=== PATIENT | female | born 1945 | race Caucasian/White ===

== ENCOUNTER 2021-11-30 21:15 | Inpatient (IN) | payer MEDICARE, OTHER ==
[~2021-11-30] VITALS: Ht 165.1 cm; Wt 59.4 kg
--- NOTE | 2021-11-30 21:39 | NUR ---
BIBRA 881 FROM HOME C/O DIZZY AND WEAKNESS STARTED TODAY. PLACED ON BED, AAOX4, BREATHING EVEN AND UNLABORED SATURATING AT 98%RA
--- NOTE | 2021-11-30 21:48 | NUR ---
20G IV LINE ESTABLISHED LF. BLOOD DRAWN AND SENT TO LAB.
[2021-11-30 21:55] LABS: BASOPHILS # (AUTO) 0.1 K/uL (0.0-0.2); BASOPHILS % (AUTO) 0.8 % (0.0-2.0); HEMATOCRIT 38 % (33-45); HEMOGLOBIN 12.4 g/dL (11.5-14.8); LYMPHOCYTES # (AUTO) 2.1 K/uL (0.8-4.8); LYMPHOCYTES % (AUTO) 19.3 % (20.0-44.0); MEAN CORPUSCULAR HGB CONC 33 g/dl (31.0-36.0); MEAN CORPUSCULAR VOLUME 90 fL (82-100); MONOCYTES # (AUTO) 1.1 K/uL (0.1-1.30); MONOCYTES % (AUTO) 10.1 % (2.0-12.0); NEUTROPHILS % (AUTO) 64.8 % (43.0-81.0); PLATELET COUNT (AUTO) 218 K/uL (150-450); RED BLOOD CELL COUNT(AUTO) 4.21 MIL/uL (4.0-5.2); WHITE BLOOD COUNT (AUTO) 10.8 K/uL (4.3-11.0)
[2021-11-30 22:04] LABS: CALCIUM, SERUM 9.2 mg/dL (8.5-10.1); CARBON DIOXIDE 28 mmol/L (21-32); CHLORIDE 98 mmol/L (98-107); CREATININE 1.1 mg/dL (0.6-1.3); GLUCOSE 319 mg/dL (74-106); POTASSIUM 4.3 mmol/L (3.5-5.1); SODIUM SERUM 136 mmol/L (136-145); UREA NITROGEN, BLOOD 22 mg/dL (7-18)
[2021-11-30 22:08] LABS: ALBUMIN 3.6 g/dL (3.4-5.0); BILIRUBIN,DIRECT 0.1 mg/dL (0.0-0.2); BILIRUBIN,TOTAL 0.4 mg/dL (0.2-1.0); TOTAL PROTEIN, SERUM 7.7 g/dL (6.4-8.2)
--- NOTE | 2021-11-30 22:20 | NUR ---
PT BEING TRANSPORTED TO CT VIA [facility] [place]
[2021-11-30] MEDS ORDERED: MORPHINE SULFATE INJ 2 MG/ML DISP.SYRIN IV ONE (22:30)
[2021-11-30] MEDS ORDERED: hydrALAZINE HCL IV 20 MG VIAL IV ONE (22:30)
--- NOTE | 2021-11-30 22:31 | NUR ---
CALLED [facility] FOR EXPEDITED CT READ
[2021-11-30] MEDS ORDERED: MORPHINE SULFATE INJ 2 MG/ML DISP.SYRIN ONE (22:32)
[2021-11-30] MEDS ORDERED: hydrALAZINE HCL IV 20 MG VIAL ONE (22:32)
--- NOTE | 2021-11-30 22:38 | NUR ---
PT BEING TRANSPORTED FOR CTA VIA [facility]
[2021-11-30] MEDS ORDERED: IOHEXOL-350 100 ML VIAL IV ONE (22:41)
[2021-11-30] MEDS ORDERED: CT SWABBABLE VALVE TRANS SET 1 EA INFUS.SET MC ONE (22:41)
[2021-11-30] MEDS ORDERED: IV NS 0.9% 250 ML IV ONE (22:42)
--- NOTE | 2021-11-30 22:50 | NUR ---
DR. CURTIS ON THE PHONE WITH DR. AC
--- NOTE | 2021-11-30 22:56 | NUR ---
DR. MENG, RADIOLOGIST ON THE PHONE WITH DR. AC
[2021-11-30] MEDS ORDERED: LOSA25TA27 PO (22:59)
[2021-11-30] MEDS ORDERED: METF-440 PO (22:59)
--- NOTE | 2021-11-30 23:10 | NUR ---
KEITH DAUGHTER [phone]
--- NOTE | 2021-11-30 23:13 | NUR ---
chelsi collected and sent to lab
[2021-11-30] MEDS ORDERED: MAGNESIUM HYDROXIDE 30 ML UDC PO PRN (23:30)
[2021-11-30] MEDS ORDERED: ACETAMINOPHEN 325 MG TABLET PO PRN (23:30)
[2021-11-30] MEDS ORDERED: DEXTROSE 50%-WATER 50 ML DISP.SYRIN IV PRN (23:30)
[2021-11-30] MEDS ORDERED: MAG HYDROX/AL HYDROX/SIMETH 30 ML UDC PO PRN (23:30)
[2021-11-30] MEDS ORDERED: Z GUARD REMEDY 4 OZ OINT TP PRN (23:30)
[2021-11-30] MEDS ORDERED: TEMAZEPAM 15 MG CAPSULE PO PRN (23:30)
--- NOTE | 2021-12-01 01:04 | NUR ---
REPORT GIVEN TO SAURABH VALDOVINOS
--- NOTE | 2021-12-01 01:43 | NUR ---
PT TRANSPORT TO UNIT ON [facility] WITH EMT AND RN AT BEDSIDE W/ ACLS PROTOCL. NAD NOTED DURING TRANSPORT.
[2021-12-01 01:45] VITALS: BP 145/75
[2021-12-01] MEDS: IV NS 0.9% 1,000 ML IV PRN ×2 (01:56→20:36)
--- NOTE | 2021-12-01 02:25 | NUR ---
RN NOTE 0139 ADMITTED PT TO UNIT WITH DIAGNOSIS OF BRAIN MASS AND INTRACTABLE DIZZINESS. PT AOX4. NOT IN ANY DISTRESS, COMPLAINED OF DIZZINESS AND LOWER BACK PAIN. DENIES SOB, TOLERATES ROOM AIR. SKIN INTACT. IV ON LFA PATENT AND INTACT, IVFLUIDS NS STARTED ORDERED. ALL SAFETY MEASURES IN PLACE, ORIENTED PT TO BED OPERATION AND CALL LIGHT.
[2021-12-01] MEDS: MORPHINE SULFATE INJ 2 MG/ML DISP.SYRIN IV PRN ×3 (02:46→21:17)
[2021-12-01 04:00] VITALS: BP 130/63
[2021-12-01 06:43] LABS: BASOPHILS # (AUTO) 0.1 K/uL (0.0-0.2); BASOPHILS % (AUTO) 1.1 % (0.0-2.0); HEMATOCRIT 35 % (33-45); HEMOGLOBIN 11.4 g/dL (11.5-14.8); LYMPHOCYTES % (AUTO) 20.2 % (20.0-44.0); MEAN CORPUSCULAR HGB CONC 33 g/dl (31.0-36.0); MEAN CORPUSCULAR VOLUME 91 fL (82-100); MONOCYTES # (AUTO) 1.1 K/uL (0.1-1.30); MONOCYTES % (AUTO) 10.8 % (2.0-12.0); NEUTROPHILS # (AUTO) 6.1 K/uL (1.8-8.9); NEUTROPHILS % (AUTO) 61.9 % (43.0-81.0); PLATELET COUNT (AUTO) 201 K/uL (150-450); RED BLOOD CELL COUNT(AUTO) 3.82 MIL/uL (4.0-5.2); WHITE BLOOD COUNT (AUTO) 9.8 K/uL (4.3-11.0)
--- NOTE | 2021-12-01 06:50 | NUR ---
RN NOTE PT SLEEPING, AROUSES EASILY. PT WITH TOLERABLE PAIN AT THIS TIME, PT STATED MORPHINE HELPED. NO SIGNS OF DISTRESS. SR ON TELE MONITOR WITH BBB. DENIES CHEST PAIN OR SOB. CONTINUE ON IVFLUIDS NS AT 75ML.HR. INFUSING WELL. WILL ENDORSE TO NEXT SHIFT NURSE FOR DERECK,
[2021-12-01 07:15] LABS: CALCIUM, SERUM 8.8 mg/dL (8.5-10.1); CREATININE 0.8 mg/dL (0.6-1.3); MAGNESIUM 1.5 mg/dL (1.8-2.4); PHOSPHORUS 3.5 mg/dL (2.5-4.9)
[2021-12-01 07:18] LABS: THYROID STIMULATING HORMONE 2.65 uIU/mL (0.358-3.74)
[2021-12-01] MEDS: PANTOPRAZOLE 40 MG TABLET.DR PO SCH (07:57)
[2021-12-01 08:00] VITALS: BP 136/76
[2021-12-01] MEDS: BLOOD SUGAR DIAGNOSTIC 1 EACH STRIP IN SCH ×4 (08:19→22:41)
[2021-12-01] MEDS: ONDANSETRON HCL/PF 4 MG/2 ML VIAL IVP PRN ×2 (08:19→20:15)
[2021-12-01] MEDS: LOSARTAN POTASSIUM 25 MG TABLET PO SCH (09:11)
[2021-12-01] MEDS: METFORMIN 500 MG TABLET PO SCH ×2 (09:12→18:57)
[2021-12-01] MEDS: INSULIN REGULAR, HUMAN 100 UNIT/ML 3 ML VIAL SQ PRN ×3 (09:40→22:40)
[2021-12-01] MEDS ORDERED: MAGNESIUM OXIDE 400 MG TABLET PO ONE (10:00)
[2021-12-01 12:00] VITALS: BP 154/68
[2021-12-01 16:00] VITALS: BP 72/89
[2021-12-01] MEDS ORDERED: IOHEXOL-300 100 ML VIAL IV ONE (17:03)
--- NOTE | 2021-12-01 19:30 | NUR ---
telemarketing representative notes pts was continuous pickling line pickler by xray donor services technician via bed for ct abdomen an pelvis , pts chart was revied by dr martin oncology with order mri brain with contrast.
--- NOTE | 2021-12-01 19:30 | NUR ---
DATA ENTRY OPENING NOTES RECEIVED PTS IN BED AWAKE A/OX4 RESPONSIVE ON R/A SATING 95% SR -HR 77 ON TELE MONITOR , NO SOB NO DISTRESS NOTED , V/S STABLE AFEBRILE .ON IV FLUID NS AT 75CC/HR ON LEFT FA g#20 INTACT AND PATENT ALL NEEDS ATTENDED TOO CALL LIGHT WITHIN REACH WILL CONTINUE TO MONITOR PTS.
[2021-12-01 20:00] VITALS: BP 145/92
--- NOTE | 2021-12-01 20:15 | NUR ---
NIKOLAY RN NOTES pTS NOTED WITH [id number] OF EMESIS MODERATE AMT . ZOFRAN 4 MG IV PUSH GIVEN ORDERED.WILL CONTINUE TO MONITOR PTS.
--- NOTE | 2021-12-01 21:17 | NUR ---
telemarketing representative notes pts complain of abdominal pain morphine given as ordered with effect will continue to monitor.
--- NOTE | 2021-12-01 21:30 | NUR ---
telehealth case manager notes spoke to daughter Alina updated with pts condition inform her pts is going to have mri brain with contrast .daughter consented for mri brain.
--- NOTE | 2021-12-01 22:44 | NUR ---
telecommunication engineer notes Blood sugar for 10pm [id number] 4 units of regular insulin given per sliding scale pts on iv fluids willcheck blood sugar again in am.
[2021-12-02] VITALS: BP 135/68
[2021-12-02] MEDS: MORPHINE SULFATE INJ 2 MG/ML DISP.SYRIN IV PRN (03:14)
[2021-12-02 04:00] VITALS: BP 146/59
[2021-12-02 06:00] LABS: BASOPHILS % (AUTO) 0.4 % (0.0-2.0); EOSINOPHILS % (AUTO) 2.5 % (0.0-6.0); HEMATOCRIT 36 % (33-45); HEMOGLOBIN 11.4 g/dL (11.5-14.8); LYMPHOCYTES # (AUTO) 1.6 K/uL (0.8-4.8); LYMPHOCYTES % (AUTO) 14.7 % (20.0-44.0); MEAN CORPUSCULAR HGB CONC 32 g/dl (31.0-36.0); MEAN CORPUSCULAR VOLUME 94 fL (82-100); MONOCYTES % (AUTO) 9.4 % (2.0-12.0); NEUTROPHILS # (AUTO) 8.1 K/uL (1.8-8.9); PLATELET COUNT (AUTO) 193 K/uL (150-450); RED BLOOD CELL COUNT(AUTO) 3.81 MIL/uL (4.0-5.2); WHITE BLOOD COUNT (AUTO) 11.1 K/uL (4.3-11.0)
--- NOTE | 2021-12-02 07:14 | NUR ---
television picture tube rebuilder notes pts remains on r/a , sating 96% no sob no distress noted ivf of ns at 75cc/hr tolerating well. all needs attended too call light within reach will endorse to rn day shift for continuity of care , for MRI with contrast today consented for procedure by daughter ellie .
[2021-12-02 07:17] LABS: THYROID STIMULATING HORMONE 0.498 uIU/mL (0.358-3.74)
--- NOTE | 2021-12-02 07:30 | NUR ---
OPENING NOTES RECEIVED PTS IN BED AWAKE A/OX3-4 RESPONSIVE ON R/A SATING 95% SR -HR 76 ON TELE MONITOR NO SOB NO DISTRESS NOTED , V/S STABLE AFEBRILE .ON IV FLUID NS AT 75CC/HR ON LEFT FA g#20 INTACT AND PATENT ALL NEEDS ATTENDED TOO CALL LIGHT WITHIN REACH WILL CONTINUE TO MONITOR PTS.
[2021-12-02] MEDS: BLOOD SUGAR DIAGNOSTIC 1 EACH STRIP IN SCH ×4 (07:43→22:43)
[2021-12-02] MEDS: METFORMIN 500 MG TABLET PO SCH ×2 (07:55→18:19)
[2021-12-02] MEDS: PANTOPRAZOLE 40 MG TABLET.DR PO SCH (07:55)
[2021-12-02] MEDS: INSULIN REGULAR, HUMAN 100 UNIT/ML 3 ML VIAL SQ PRN ×4 (07:57→22:43)
[2021-12-02 08:00] VITALS: BP 129/83
[2021-12-02] MEDS: LEVETIRACETAM (250 MG) 250 MG TABLET PO SCH ×2 (09:13→22:14)
[2021-12-02] MEDS: LOSARTAN POTASSIUM 25 MG TABLET PO SCH (09:13)
[2021-12-02 10:12] LABS: CALCIUM, SERUM 8.7 mg/dL (8.5-10.1); CREATININE 0.8 mg/dL (0.6-1.3); POTASSIUM 4.2 mmol/L (3.5-5.1)
[2021-12-02] MEDS: HYDROCODONE/APAP 10/325MG TABLET PO PRN ×2 (11:06→14:52)
[2021-12-02] MEDS: IV NS 0.9% 1,000 ML IV PRN (11:27)
[2021-12-02 12:00] VITALS: BP 145/70
[2021-12-02 16:00] VITALS: BP 161/72
[2021-12-02] MEDS: FERROUS SULFATE (325 MG) 325 MG/TAB TABLET PO SCH (16:47)
--- NOTE | 2021-12-02 19:00 | NUR ---
CLOSING NOTE PT SLEEPING, AROUSES EASILY. PT WITH TOLERABLE PAIN AT THIS TIME, PT STATED NORCO HELPED. NO SIGNS OF DISTRESS. SR ON TELE MONITOR WITH BBB. DENIES CHEST PAIN OR SOB. CONTINUE ON IVFLUIDS NS AT 75ML.HR. INFUSING WELL. WILL ENDORSE TO SPOILAGE WORKER NURSE FOR DERECK.
[2021-12-02 20:00] VITALS: BP 157/76
--- NOTE | 2021-12-02 22:44 | NUR ---
manager telecom notes blood sugar for 10pm is 167 mg/dl 3 units of regular insulin given per sliding scale
[2021-12-03] VITALS: BP 150/74
--- NOTE | 2021-12-03 02:19 | NUR ---
HOBBIES AND CRAFTS SALES REPRESENTATIVE OPENING NOTES RECEIVED PTS IN BED AWAKE A/OX2-3 RESPONSIVE ON R/A SATING 95% SR -HR 77 ON TELE MONITOR , NO SOB NO DISTRESS NOTED , V/S STABLE AFEBRILE .ON IV FLUID NS AT 75CC/HR ON RIGHT WRIST g#20 INTACT AND PATENT ALL NEEDS ATTENDED TOO CALL LIGHT WITHIN REACH WILL CONTINUE TO MONITOR PTS.
[2021-12-03 04:00] VITALS: BP 158/66
[2021-12-03] MEDS: IV NS 0.9% 1,000 ML IV PRN (04:45)
--- NOTE | 2021-12-03 06:49 | NUR ---
rn telephone triage notes pts remains on r/a , sating 96% no sob no distress noted ivf of ns at 75cc/hr tolerating well. all needs attended too call light within reach will endorse to rn day shift for continuity of care , for ct lung mass biopsy consented on saturday.
[2021-12-03 07:05] LABS: BASOPHILS # (AUTO) 0.1 K/uL (0.0-0.2); BASOPHILS % (AUTO) 0.6 % (0.0-2.0); EOSINOPHILS % (AUTO) 4.5 % (0.0-6.0); HEMATOCRIT 36 % (33-45); HEMOGLOBIN 11.6 g/dL (11.5-14.8); LYMPHOCYTES # (AUTO) 1.7 K/uL (0.8-4.8); LYMPHOCYTES % (AUTO) 13.4 % (20.0-44.0); MEAN CORPUSCULAR HGB CONC 32 g/dl (31.0-36.0); MEAN CORPUSCULAR VOLUME 92 fL (82-100); MONOCYTES # (AUTO) 1.3 K/uL (0.1-1.30); MONOCYTES % (AUTO) 10.4 % (2.0-12.0); NEUTROPHILS # (AUTO) 9.2 K/uL (1.8-8.9); NEUTROPHILS % (AUTO) 71.1 % (43.0-81.0); PLATELET COUNT (AUTO) 177 K/uL (150-450); RED BLOOD CELL COUNT(AUTO) 3.92 MIL/uL (4.0-5.2); WHITE BLOOD COUNT (AUTO) 12.9 K/uL (4.3-11.0)
[2021-12-03 07:21] LABS: CALCIUM, SERUM 8.5 mg/dL (8.5-10.1); CREATININE 0.7 mg/dL (0.6-1.3); MAGNESIUM 1.5 mg/dL (1.8-2.4); POTASSIUM 4.1 mmol/L (3.5-5.1)
--- NOTE | 2021-12-03 07:59 | NUR ---
agent telegrapher note patient in bed, resting comfortably in bed ,on ra saturation ,94% at this time, rt fa hl intact and on ivf as ordered, noted patient has 8 sec svt episode bp 159/84 hr 83, dr alva at bedside, no new order given at this time bed in lowest and locked position, will cont to monitor
[2021-12-03 08:00] VITALS: BP 156/84
[2021-12-03 08:06] LABS: IMMUNOGLOBULIN A, SERUM 750 mg/dL (64-422); IMMUNOGLOBULIN G, SERUM 576 mg/dL (586-1602); IMMUNOGLOBULIN M, SERUM 53 mg/dL (26-217)
[2021-12-03] MEDS: METFORMIN 500 MG TABLET PO SCH ×2 (08:56→17:09)
[2021-12-03] MEDS: LOSARTAN POTASSIUM 25 MG TABLET PO SCH (08:56)
[2021-12-03] MEDS: FERROUS SULFATE (325 MG) 325 MG/TAB TABLET PO SCH ×2 (08:56→17:09)
[2021-12-03] MEDS: LEVETIRACETAM (250 MG) 250 MG TABLET PO SCH ×2 (08:56→20:08)
[2021-12-03] MEDS: BLOOD SUGAR DIAGNOSTIC 1 EACH STRIP IN SCH ×4 (08:58→22:05)
[2021-12-03] MEDS: PANTOPRAZOLE 40 MG TABLET.DR PO SCH (08:58)
[2021-12-03 09:06] LABS: CANCER AG, 125 43.1 U/mL (0.0-38.1); CANCER AG, 15-3 48.5 U/mL (0.0-25.0)
[2021-12-03] MEDS: Magnesium 1GM/D5W 100ML PREMIX 100 ML IV SCH ×2 (10:47→11:52)
--- NOTE | 2021-12-03 11:45 | NUR ---
CONSERVATION ENGINEER NOTE 2ED ECHO DOING NOEW ORDERED, FAMILY AT BEDSIDE
[2021-12-03 12:00] VITALS: BP 158/89
--- NOTE | 2021-12-03 13:00 | NUR ---
teletypesetter monitor note blood sugar 187 family at bedside dont want to coverage with insulin
[2021-12-03] MEDS ORDERED: GADOTERATE MEGLUMINE 5 MMOL/10 ML VIAL IV ONE (13:02)
[2021-12-03] MEDS: IV D5/ 0.9% NACL 1,000 ML IV PRN (14:53)
--- NOTE | 2021-12-03 15:01 | NUR ---
telecommunications engineer note spoke with dr valerio notified that patient is not eating well ok to change ivf with d5ns at 75 ml; per hour ,order carried out
[2021-12-03 16:00] VITALS: BP 154/89
[2021-12-03] MEDS: INSULIN REGULAR, HUMAN 100 UNIT/ML 3 ML VIAL SQ PRN ×2 (17:10→22:09)
--- NOTE | 2021-12-03 18:25 | NUR ---
FUNERAL HOME MAKEUP ARTIST NOTE FAMILY AT BEDSIDE , FED PATIENT, ATE 25% OF FOOD, ALL NEEDS ATTENDED ,ON IVF ORDERED WILL MONITOR, ON RA, NO SOB NOTED
--- NOTE | 2021-12-03 18:56 | NUR ---
IT SYSTEMS ENGINEER NOTE TRANSFERRED TO ROOM 103
[2021-12-03 20:00] VITALS: BP 185/78
--- NOTE | 2021-12-03 20:04 | NUR ---
MACHINE LEAD BURNER OPENING NOTE PT RECEIVED IN BED, AWAKE, CONFUSED, UNABLE TO ANSWER ANY QUESTIONS WHEN ASSESSING FOR NEURO STATUS; FAMILY AT BEDSIDE. PT ON RA WITH CURRENT O2SAT OF 93%; NOTED TO HAVE SLIGHT COUGH; NO OTHER S/S OF RESP DISTRESS, NO SOB, NON-LABORED AND EQUAL BREATHING. PT ATTACHED TO EXTERNAL MONITOR, SR WITH HR OF 81. IV ACCESS ON RIGHT WRIST 20G, INTACT AND PATENT, FLUSHES EASILY WITH NO RESISTANCE, NS RUNNING AT 75 ML/HR. PT NOTED TO HAVE PUREWICK, DRAINING CLEAR AND YELLOW URINE. BED IN LOWEST POSITION, CALL LIGHT WITHIN REACH, SIDE RAILS UP X3. WILL CONTINUE TO MONITOR THROUGHOUT THE NIGHT.
[2021-12-03] MEDS: hydrALAZINE HCL IV 20 MG VIAL IV PRN (20:09)
--- NOTE | 2021-12-03 20:09 | NUR ---
RN NOTE PT NOTED TO HAVE BP OF 185/78 AND HR OF 81. PT ADMINISTERED HYDRALAZINE 10 MG. WILL MONITOR FOR EFFECTIVENESS.
[2021-12-04] VITALS: BP 166/94
[2021-12-04 04:00] VITALS: BP 155/86
[2021-12-04] MEDS: IV D5/ 0.9% NACL 1,000 ML IV PRN (04:26)
--- NOTE | 2021-12-04 06:25 | NUR ---
SENIOR ENGINEERING TECH CLOSING NOTE PT REMAINS IN BED, AWAKE, CONFUSED, DOESN'T REPLY WHEN TALKED TO; NO CHANGES TO NEURO STATUS; SLEPT INTERMITTENTLY THROUGHOUT THE NGIHT. CONTINUES TO BE ON RA WITH O2SAT RANGING FROM 93%-95%; CONTINUES TO HAVE COUGH/CHEST CONGESTION; NO OTHER S/S OF RESP DISTRESS, NO SOB, NON-LABORED AND EQUAL BREATHING. ATTACHED TO EXTERNAL MONITOR, SR WITH HR RANGING FROM 81-97. IV ACCESS ON RIGHT WRIST 20G, INTACT AND PATENT, FLUSHES EASILY WITH NO RESISTANCE, NS RUNNING AT 75 ML/HR. PUREWICK CHANGED, DRAINING CLEAR AND YELLOW URINE. ALL DUE MEDS ADMINISTERED DURING THE NIGHT. BED IN LOWEST POSITION, CALL LIGHT WITHIN REACH, SIDE RAILS UP X3. WILL ENDORSE TO DAYSHIFT NURSE TO CONTINUE CARE.
[2021-12-04 06:55] LABS: BASOPHILS # (AUTO) 0.1 K/uL (0.0-0.2); BASOPHILS % (AUTO) 0.4 % (0.0-2.0); EOSINOPHILS % (AUTO) 3.4 % (0.0-6.0); HEMATOCRIT 41 % (33-45); HEMOGLOBIN 12.6 g/dL (11.5-14.8); LYMPHOCYTES # (AUTO) 0.9 K/uL (0.8-4.8); MEAN CORPUSCULAR HGB CONC 31 g/dl (31.0-36.0); MEAN CORPUSCULAR VOLUME 99 fL (82-100); MONOCYTES # (AUTO) 1.1 K/uL (0.1-1.30); MONOCYTES % (AUTO) 8.5 % (2.0-12.0); NEUTROPHILS # (AUTO) 10.8 K/uL (1.8-8.9); NEUTROPHILS % (AUTO) 80.7 % (43.0-81.0); PLATELET COUNT (AUTO) 154 K/uL (150-450); RED BLOOD CELL COUNT(AUTO) 4.18 MIL/uL (4.0-5.2); WHITE BLOOD COUNT (AUTO) 13.4 K/uL (4.3-11.0)
--- NOTE | 2021-12-04 07:31 | NUR ---
RN OPENING NOTE PT RECEIVED IN BED, AWAKE, CONFUSED, UNABLE TO ANSWER ANY QUESTIONS WHEN ASSESSING FOR NEURO STATUS. PT ON RA ; NOTED TO HAVE SLIGHT COUGH; NO OTHER S/S OF RESP DISTRESS, NO SOB, NON-LABORED AND EQUAL BREATHING. PT ATTACHED TO EXTERNAL MONITOR, . IV ACCESS ON RIGHT WRIST 20G, INTACT AND PATENT, FLUSHES EASILY WITH NO RESISTANCE, NS RUNNING AT 75 ML/HR. PT NOTED TO HAVE PUREWICK, DRAINING CLEAR AND YELLOW URINE. BED IN LOWEST POSITION, CALL LIGHT WITHIN REACH, SIDE RAILS UP X3.
[2021-12-04 08:03] VITALS: BP 160/60
[2021-12-04] MEDS: BLOOD SUGAR DIAGNOSTIC 1 EACH STRIP IN SCH ×4 (08:36→22:38)
[2021-12-04] MEDS: LOSARTAN POTASSIUM 25 MG TABLET PO SCH (08:37)
[2021-12-04] MEDS: LEVETIRACETAM (250 MG) 250 MG TABLET PO SCH ×2 (08:37→21:49)
[2021-12-04] MEDS: PANTOPRAZOLE 40 MG TABLET.DR PO SCH (08:37)
[2021-12-04] MEDS: FERROUS SULFATE (325 MG) 325 MG/TAB TABLET PO SCH ×2 (08:38→17:17)
[2021-12-04] MEDS: METFORMIN 500 MG TABLET PO SCH ×2 (08:38→17:17)
[2021-12-04] MEDS: INSULIN REGULAR, HUMAN 100 UNIT/ML 3 ML VIAL SQ PRN ×3 (08:40→17:19)
[2021-12-04 09:32] LABS: CALCIUM, SERUM 8.6 mg/dL (8.5-10.1); CREATININE 0.7 mg/dL (0.6-1.3); POTASSIUM 3.8 mmol/L (3.5-5.1)
[2021-12-04 12:00] VITALS: BP 156/84
--- NOTE | 2021-12-04 12:19 | NUR ---
RN NOTE PATIENTS O2 LEVEL NOTED TO BE 91 [address] PATIENT ON 2L NC. Addendum: 12/04/21 at 1241 by BONNIE PEOPLES RN REMOVED NAIL [place] LEONEAN, RECHECKED O2 SAT READING 96%, KEPT PATIENT ON ROOM AIR
[2021-12-04] MEDS: ENSURE ENLIVE 237 ML LIQUID (VANILLA) PO SCH ×2 (12:27→17:17)
[2021-12-04 13:07] LABS: *SPE A/G RATIO 0.8 (0.7-1.7); *SPE ALPHA-1-GLOBULIN 0.3 g/dL (0.0-0.4); *SPE BETA GLOBULIN 1.4 g/dL (0.7-1.3); *SPE M-SPIKE 0.7 g/dL (Not Observed)
[2021-12-04 16:00] VITALS: BP 164/90
[2021-12-04] MEDS: hydrALAZINE HCL IV 20 MG VIAL IV PRN (16:32)
--- NOTE | 2021-12-04 18:57 | NUR ---
REAL ESTATE OFFICE SUPERVISOR CLOSING NOTE PT REMAINS IN BED, AWAKE, CONFUSED, DOESN'T REPLY WHEN TALKED TO; NO CHANGES TO NEURO STATUS; . CONTINUES TO BE ON RA WITH O2SAT RANGING FROM 93%-95%; CONTINUES TO HAVE COUGH/CHEST CONGESTION; NO OTHER S/S OF RESP DISTRESS, NO SOB, NON-LABORED AND EQUAL BREATHING. ATTACHED TO EXTERNAL MONITOR, SR WITH HR RANGING FROM 81-97. IV ACCESS ON RIGHT WRIST 20G, INTACT AND PATENT, FLUSHES EASILY WITH NO RESISTANCE, NS RUNNING AT 75 ML/HR. PUREWICK CHANGED, DRAINING CLEAR AND YELLOW URINE. ALL DUE MEDS ADMINISTERED DURING THE NIGHT. BED IN LOWEST POSITION, CALL LIGHT WITHIN REACH, SIDE RAILS UP X3. WILL ENDORSE TO NIGHT NURSE TO CONTINUE CARE.
[2021-12-04 20:00] VITALS: BP 143/76
--- NOTE | 2021-12-04 21:03 | NUR ---
CHANGED OF PRIMARY NURSE Care endorsed to Saima VALDOVINOS.
--- NOTE | 2021-12-04 21:17 | NUR ---
SAURABH/RN ASSUMED CARE FOR DERECK. PATIENT WAS IN BED APPEAR SLEEPING, NO SIGNS OF DISTRESS NOTED, BREATHING EVEN AND UNLABORED, CALL LIGHT IN REACH, FALL PRECAUTIONS PER PROTOCOL IMPLEMENTED, WILL MONITOR.
--- NOTE | 2021-12-04 22:38 | NUR ---
SAURABH/RN ACCU CHECK BLOOD SUGAR 191 DID NOT COVER INSULIN, PATIENT WILL BE NPO AFTER MIDNIGHT FOR A PROCEDURE TOMORROW. WILL MONITOR.
[2021-12-05] VITALS (14 sets, daily range): BP systolic 118–175; BP diastolic 61–92
[2021-12-05] MEDS: IV D5/ 0.9% NACL 1,000 ML IV PRN ×2 (02:18→19:53)
[2021-12-05] MEDS: BLOOD SUGAR DIAGNOSTIC 1 EACH STRIP IN SCH ×4 (06:12→23:01)
--- NOTE | 2021-12-05 06:17 | NUR ---
SAURABH/RN PATIENT IS AWAKE, NO SIGNS OF DISTRESS NOTED, ALL NEEDS ATTENDED AT THIS TIME, WILL CONTINUE TO MONITOR.
[2021-12-05 06:45] LABS: CALCIUM, SERUM 9.2 mg/dL (8.5-10.1); CREATININE 0.8 mg/dL (0.6-1.3); POTASSIUM 3.7 mmol/L (3.5-5.1)
[2021-12-05 07:22] LABS: MAGNESIUM 1.4 mg/dL (1.8-2.4); PHOSPHORUS 3.5 mg/dL (2.5-4.9)
--- NOTE | 2021-12-05 07:27 | NUR ---
RN OPENING NOTE PT RECEIVED IN BED, AWAKE, CONFUSED, UNABLE TO ANSWER ANY QUESTIONS WHEN ASSESSING FOR NEURO STATUS. PT ON RA ; NOTED TO HAVE SLIGHT COUGH; NO OTHER S/S OF RESP DISTRESS, NO SOB, NON-LABORED AND EQUAL BREATHING. PT ATTACHED TO EXTERNAL MONITOR, . IV ACCESS ON RIGHT WRIST 20G, INTACT AND PATENT, FLUSHES EASILY WITH NO RESISTANCE. BED IN LOWEST POSITION, CALL LIGHT WITHIN REACH, SIDE RAILS UP X3. Addendum: 12/05/21 at 0904 by BONNIE PEOPLES RN received Patient on 3L nasal cannula
[2021-12-05] MEDS: METFORMIN 500 MG TABLET PO SCH ×3 (08:00→17:52)
[2021-12-05] MEDS: LEVETIRACETAM (250 MG) 250 MG TABLET PO SCH ×2 (08:39→20:07)
[2021-12-05] MEDS: FERROUS SULFATE (325 MG) 325 MG/TAB TABLET PO SCH ×2 (08:39→17:00)
[2021-12-05] MEDS: PANTOPRAZOLE 40 MG TABLET.DR PO SCH (08:39)
[2021-12-05] MEDS: hydrALAZINE HCL IV 20 MG VIAL IV PRN (08:40)
[2021-12-05] MEDS: LOSARTAN POTASSIUM 25 MG TABLET PO SCH (08:40)
[2021-12-05 08:48] LABS: BASOPHILS # (AUTO) 0.1 K/uL (0.0-0.2); BASOPHILS % (AUTO) 0.4 % (0.0-2.0); EOSINOPHILS % (AUTO) 2.8 % (0.0-6.0); HEMATOCRIT 37 % (33-45); HEMOGLOBIN 11.9 g/dL (11.5-14.8); LYMPHOCYTES # (AUTO) 1.1 K/uL (0.8-4.8); LYMPHOCYTES % (AUTO) 6.4 % (20.0-44.0); MEAN CORPUSCULAR HGB CONC 33 g/dl (31.0-36.0); MEAN CORPUSCULAR VOLUME 91 fL (82-100); MONOCYTES # (AUTO) 1.8 K/uL (0.1-1.30); NEUTROPHILS # (AUTO) 13.3 K/uL (1.8-8.9); NEUTROPHILS % (AUTO) 79.4 % (43.0-81.0); PLATELET COUNT (AUTO) 217 K/uL (150-450); RED BLOOD CELL COUNT(AUTO) 4.05 MIL/uL (4.0-5.2); WHITE BLOOD COUNT (AUTO) 16.8 K/uL (4.3-11.0)
[2021-12-05] MEDS: ENSURE ENLIVE 237 ML LIQUID (VANILLA) PO SCH ×3 (09:00→17:00)
--- NOTE | 2021-12-05 09:18 | NUR ---
WOUND CARE CONSULT: PT SEEN FOR PINK RAISED LESION ON RT SIDE OF NECK. NO ERYTHEMA OR DRAINAGE NOTED. PT ALSO NOTED TO HAVE SMALL RED RAISED LESION TO MIDCHEST AND CIRCULAR LESIONS TO PUBIC AREA, ALL UNKNOWN ETIOLOGY. DEFER TO PMD. RECOMMENDATIONS MADE FOR SKIN PROTECTION. DISCUSSED WITH NURSING STAFF. M D IN AGREEMENT WITH PLAN OF CARE.
--- NOTE | 2021-12-05 10:00 | NUR ---
RN NOTE F/UP REGARDING CT BIOPSY TIME AND DATE, TIME HAS NOT BEEN SET. -INFORMED NURSING SPECIAL CLIENT BUS DRIVER
[2021-12-05] MEDS: MORPHINE SULFATE INJ 2 MG/ML DISP.SYRIN IV PRN (10:32)
[2021-12-05] MEDS: DILTIAZEM HCL CD 240 MG PO SCH (10:37)
[2021-12-05] MEDS: Magnesium 1GM/D5W 100ML PREMIX 100 ML IV SCH ×4 (10:37→13:30)
[2021-12-05] MEDS: INSULIN REGULAR, HUMAN 100 UNIT/ML 3 ML VIAL SQ PRN ×3 (12:03→23:14)
--- NOTE | 2021-12-05 12:38 | NUR ---
RN NOTE F/UP CT BIOPSY, STILL NO TIME FOR PROCEDURE, RESEARCH INSTRUCTOR MADE AWARE INFORMED ADMIN RAGHU.
[2021-12-05] MEDS ORDERED: PIPERACILLIN /TAZOBACTAM 3.375 G in IV D5W 100 ML IV SCH (14:00)
--- NOTE | 2021-12-05 14:06 | NUR ---
RN NOTE PATIENT TRANSFERRED TO CT VIA ACLS, PATIENTS NURSE BENNETT VALDOVINOS.
[2021-12-05] MEDS ORDERED: FLUMAZENIL 0.5 MG VIAL IV PRN (14:30)
[2021-12-05] MEDS ORDERED: FENTANYL PF 250MCG/5ML AMPUL IV PRN (14:30)
[2021-12-05] MEDS ORDERED: MIDAZOLAM HCL 2 MG/2ML VIAL IV PRN (14:30)
[2021-12-05] MEDS ORDERED: NALOXONE PREFILLED SYRINGE 2 MG/2 ML SYRINGE IV PRN (14:30)
--- NOTE | 2021-12-05 14:39 | NUR ---
RECEIVED FROM CT,ALTERED ON NONREBREATHER SAT 925,DR. RODAS NOTIFIED AWAITS ABG.
--- NOTE | 2021-12-05 14:51 | NUR ---
ALSO DR. ADRIANNA RODAS NOTIFIED CT UNABLE TO DO CT R/T UNABLE TO TOLERATE ANAESTHESIA.
--- NOTE | 2021-12-05 15:09 | NUR ---
RN NOTE RECEIVED PATIENT ON NON REBREATHER 15 L MASK. CURRENT O2 SATURATION IS 94%. NOTIFIED RT PATIENT IS TO BE KEPT NON REBREATHER THEN TITRATE DOWN.
[2021-12-05 15:41] LABS: ABG BASE EXCESS -0.6 mmol/L; ABG OXYGEN SATURATION 96.3 % (92.0-98.5); ABG PCO2 38.2 mmHg (35.0-45.0); ABG PH 7.412 (7.350-7.450); ABG PO2 93.6 mmHg (75.0-100.0); AaDO2 581.2 mmHg; COHb 0.3 % (0.5-1.5); MetHb 0.2 % (0.0-1.5); O2Hb 95.8 % (94.0-97.0); SITE, ABG Left Radial; VENT MODE, BG NRB
[2021-12-05] MEDS ORDERED: Magnesium 1GM/D5W 100ML PREMIX 100 ML IV SCH (16:00)
[2021-12-05] MEDS ORDERED: PIPERACILLIN /TAZOBACTAM 3.375 G in IV D5W 50 ML IV SCH (16:00)
--- NOTE | 2021-12-05 16:19 | NUR ---
RN NOTE PER DR FRENCH TRANSFER PATIENT TO ICU, PATIENT TAKEN TO ROOM 253 ACLS POLICY FOLLOWED.
--- NOTE | 2021-12-05 16:21 | NUR ---
RN NOTE 1330 MAGNESIUM NOT GIVEN, DUE TO PATIENT NOT BEING IN THE UNIT, HAVE BIOPSY DONE. CALLED PHARMACY LAST MAGNESIUM BAG WILL BE RESCHEDULED FOR 1600.
--- NOTE | 2021-12-05 16:45 | NUR ---
ICU/RN PT TRANSFERRED FROM TELE UNIT.ALOC,RESPONDING ON PAIN STIMULATION.NON VERBAL.ON NRM AT 15L,SAT O2-94%.V/S STABLE,AFEBRILE.NO PAIN REPORTED AT THIS TIME.IV-HL.INCONTINENT IN DIAPER. PT IS FULL CODE.PLACED ON MONITOR HR- 105 BPM.PT IS NPO.DR FRENCH TALK TO THE FAMILY.PT IS FULL CODE.
--- NOTE | 2021-12-05 17:45 | NUR ---
ICU/RN CT OF THE HEAD DONE.DR ALMANZA NOTIFIED. AND TALK TO THE FAMILY.PT NEED TO [facility] TRANSF[facility] TO [facility].NOT A CANDIDATE FOR SURGERY. DR RODAS NOTIFIED.
[2021-12-05] MEDS: PIPERACILLIN /TAZOBACTAM 3.375 G in IV D5W 100 ML IV SCH ×2 (17:54→23:01)
[2021-12-05] MEDS: DEXAMETHASONE SOD PHOSPHATE 10 MG/ML VIAL IV SCH ×2 (17:55→23:23)
[2021-12-06] VITALS (20 sets, daily range): BP systolic 108–166; BP diastolic 53–107
--- NOTE | 2021-12-06 01:55 | NUR ---
ICU/RN AM CARE PROVIDED.DUE MEDS ARE GIVEN ORDERED.PT IS ON NRM AT 15L.SAT O2-94%.V/S STABLE,AFEBRILE .NO PAIN REPORTED AT THIS TIME.PT IS RESPONDING ON PAIN STIMULATION .LEFT UPPER ARM SOFT RESTRAIN APPLIED. STILL WAITING FOR TRANSFER TO [facility] .NO BED AVAILABLE AT THIS TIME.CONTINUE MONITORING.
[2021-12-06] MEDS: DEXAMETHASONE SOD PHOSPHATE 10 MG/ML VIAL IV SCH ×3 (05:53→17:49)
[2021-12-06] MEDS: BLOOD SUGAR DIAGNOSTIC 1 EACH STRIP IN SCH ×3 (07:30→17:36)
[2021-12-06] MEDS: PANTOPRAZOLE 40 MG TABLET.DR PO SCH ×3 (07:30→10:07)
--- NOTE | 2021-12-06 08:00 | NUR ---
DISTANCE EDUCATION FACULTY LIAISON/NOTE [facility] CALLED FOR [id number] TRANSFER TO THEIR FACILITY FOR HIGHER LEVEL OF CARE. CALL INFORMATION [facility] #3 CHRSI.
--- NOTE | 2021-12-06 08:16 | NUR ---
REAL ESTATE PARALEGAL NOTE DOCTOR LOUIS CALLED FOR AN UPDATE ON THE PATIENT AND REQUESTED TO HAVE MEDICATION (DEXAMETHSONE)FREQUENCY TIMES CHANGED FROM 1200 AND 1800 TO 0800 AND 1800.
[2021-12-06] MEDS: PIPERACILLIN /TAZOBACTAM 3.375 G in IV D5W 100 ML IV SCH ×2 (08:32→15:42)
[2021-12-06] MEDS: LOSARTAN POTASSIUM 25 MG TABLET PO SCH ×3 (08:33→10:08)
[2021-12-06] MEDS: LEVETIRACETAM (250 MG) 250 MG TABLET PO SCH ×2 (08:33→09:00)
[2021-12-06] MEDS: FERROUS SULFATE (325 MG) 325 MG/TAB TABLET PO SCH ×2 (08:33→16:45)
[2021-12-06] MEDS: METFORMIN 500 MG TABLET PO SCH ×2 (08:33→17:36)
[2021-12-06] MEDS: DILTIAZEM HCL CD 240 MG PO SCH ×3 (08:34→10:08)
[2021-12-06] MEDS: ENSURE ENLIVE 237 ML LIQUID (VANILLA) PO SCH ×3 (09:00→16:45)
[2021-12-06] MEDS: INSULIN REGULAR, HUMAN 100 UNIT/ML 3 ML VIAL SQ PRN ×2 (09:11→13:23)
--- NOTE | 2021-12-06 09:21 | NUR ---
ICU/RN NOTE CASE MANAGEMENT WAS NOTIFIED WITH THE INFORMATION FROM [facility] POSSIBLE TRANSFER. CALL BACK NUMBER
--- NOTE | 2021-12-06 09:39 | NUR ---
ICU/RN NOTE [facility] CALLED AGAIN TO ASK FOR IMAGES THEIR DOCTOR WANTS TO SEE THEM. THE CALL BACK .
--- NOTE | 2021-12-06 09:41 | NUR ---
ICU/RN NOTE CASE MANAGEMENT WAS CONTACTED IN REGARD TO [facility] POSSIBLE TRANSFER DOCTOR WOULD LIKE TO SEE IMAGES CALL BACK STEFFI
--- NOTE | 2021-12-06 09:55 | NUR ---
PT NOT ABLE TO PROCEED WITH EXAM DR COTA, AWARE , PT ACTIVELY VBROUGHT BACK TO ROOM 109 ARUNA NORTON NOTIFIED
[2021-12-06] MEDS: hydrALAZINE HCL IV 20 MG VIAL IV PRN (11:06)
[2021-12-06] MEDS: MORPHINE SULFATE INJ 2 MG/ML DISP.SYRIN IV PRN (13:15)
--- NOTE | 2021-12-06 15:37 | NUR ---
ICU/RN REPORT GIVEN TO KAYLA RN AT [facility] FOR DERECK. TAXATION AGENT SCHEDULED FOR 084.
--- NOTE | 2021-12-06 16:45 | NUR ---
ICU/RN PT LETHARGIC, UNABLE TO SWALLOW MEDICATION OR WATER/FOOD AT THIS TIME. FAMILY AT BEDSIDE EARLIER (DAUGHTER AND GRANDDAUGHTER), EDUCATED ON PT'S ASPIRATION RISKS.
--- NOTE | 2021-12-06 19:00 | NUR ---
ICU/RN PT DISCHARGED TO BE TRANSFERRED TO [facility]. PT PICKED UP BY AMBULANCE CREW. STABLE ON 6L O2 NC AT THIS TIME SAT 92% PRIOR TO DISCHARGED. FAMILY ALERTED OF TRANSFER. REPORT GIVEN TO RECEIVING RN AT [facility].
== END 2021-12-06 19:03 | disposition short-term general hospital (02) | DRG 54 ==
LOC: ER 21:43 → TELE1 12-01 00:10 → ICU 12-05 15:54
PROVIDERS: ADMIT Nurse Practitioner Acute Care; ATTEND Internal Medicine
PROC: 05H533Z Insertion of Infusion Device into Right Subclavian Vein, Percutaneous Approach (ICD-10-PCS; principal; 2021-12-05)
PROC: B546ZZA Ultrasonography of Right Subclavian Vein, Guidance (ICD-10-PCS; 2021-12-05)
DX: C79.31 Secondary malignant neoplasm of brain (principal); G93.6 Cerebral edema; J15.9 Unspecified bacterial pneumonia; J96.00 Acute respiratory failure, unspecified whether with hypoxia or hypercapnia; C78.89 Secondary malignant neoplasm of other digestive organs; G93.40 Encephalopathy, unspecified; I47.1 Supraventricular tachycardia; C78.7 Secondary malignant neoplasm of liver and intrahepatic bile duct; J98.11 Atelectasis; C34.12 Malignant neoplasm of upper lobe, left bronchus or lung; J90 Pleural effusion, not elsewhere classified; C78.1 Secondary malignant neoplasm of mediastinum; C77.1 Secondary and unspecified malignant neoplasm of intrathoracic lymph nodes; I16.0 Hypertensive urgency; E11.65 Type 2 diabetes mellitus with hyperglycemia; Z90.49 Acquired absence of other specified parts of digestive tract; D47.2 Monoclonal gammopathy; D50.9 Iron deficiency anemia, unspecified; E27.9 Disorder of adrenal gland, unspecified; E78.5 Hyperlipidemia, unspecified; I50.9 Heart failure, unspecified; I11.0 Hypertensive heart disease with heart failure; R42 Dizziness and giddiness; M54.9 Dorsalgia, unspecified; R59.0 Localized enlarged lymph nodes
CPT/HCPCS: 36415; 36600; 70450-TC; 70496-TC; 70498-TC; 70551-TC; 70552-TC; 71045-TC; 71270-TC; 72131-TC; 74178; 80048-TC; 80076-TC; 82232; 82378; 82607-TC; 82728-TC; 82784; 82803-TC; 82962-TC; 83540-TC; 83615-TC; 83735-TC; 84100-TC; 84155; 84156; 84165; 84166; 84443-TC; 84484-TC; 85025-TC; 85610-TC; 85730-TC; 86300; 86304; 86334; 87081-TC; 93307-TC; 94799-TC; 97112-TC; 97530-TC; A9575; G0378; J0360; J1100; J1815; J2270; J2405; J2543; J3475; J7030; J7042; J7050; J7060; Q9967